=== PATIENT | female | born 1995 | race Caucasian/White ===

== ENCOUNTER 2016-11-13 15:22 | Emergency (ER) | payer MEDICAID, OTHER ==
[~2016-11-13] VITALS: Ht 160 cm; Wt 80.7 kg
[2016-11-13 16:05] VITALS: BP 127/62
--- NOTE | 2016-11-13 17:04 | NUR ---
PT TO BED 4 AT THIS TIME.
--- NOTE | 2016-11-13 17:12 | NUR ---
PATIENT PRESENTS TO ED WITH C/O OF COUGH AND SORE THROAT . PT STATES SHE STARTED COUGHING TODAY AND FEELS REALLY WEAK . DENIES N/V/D; SKIN IS PINK/WARM/DRY; AAOX4 WITH EVEN AND STEADY GAIT; LUNGS CLEAR BL; HR EVEN AND REGULAR; PT DENIES ANY FEVER, CP, SOB, OR COUGH AT THIS TIME; PATIENT STATES PAIN OF 0/10 AT THIS TIME; VSS; PATIENT POSITIONED FOR COMFORT; HOB ELEVATED; BEDRAILS UP X2; BED DOWN. ER MD MADE AWARE OF PT STATUS.
--- NOTE | 2016-11-13 17:17 | NUR ---
PATIENT BEING EVALUATED BY DOCTOR AT BEDSIDE
--- NOTE | 2016-11-13 19:19 | NUR ---
ENDORSED CONTINUITY OF CARE TO THE NIGHT NURSE
[2016-11-13 19:55] VITALS: BP 126/87
--- NOTE | 2016-11-13 19:55 | NUR ---
Patient discharged with v/s stable. Written and verbal after care instructions given and explained. Patient verbalized understanding. Ambulatory with steady gait. All questions addressed prior to discharge. Advised to follow up with PMD.
== END 2016-11-13 19:55 | disposition home or self-care (01) ==
LOC: MED 15:22
DX: O26.891 Other specified pregnancy related conditions, first trimester (principal); J09.X2 Influenza due to identified novel influenza A virus with other respiratory manifestations; Z3A.01 Less than 8 weeks gestation of pregnancy

== ENCOUNTER 2020-09-06 08:18 | Emergency (ER) | payer MEDICAID, OTHER ==
[~2020-09-06] VITALS: Ht 162.6 cm; Wt 77.1 kg
[2020-09-06 08:39] VITALS: BP 104/77
--- NOTE | 2020-09-06 08:43 | NUR ---
Note victoria in [facility] - 09/06/20 at 0845 by [email or web address] Addendum: 09/06/20 at 0844 by [email or web address] Luis Angel kessler in [facility] - 09/06/20 at 0845 by [email or web address] HANDED ON URINE CUP.
[2020-09-06 08:53] VITALS: BP 129/79
--- NOTE | 2020-09-06 08:58 | NUR ---
25/f bib self C/O LEFT HEEL PAIN X 1 WEEK. DENIES TRAUMA. PMH:DENIES
[2020-09-06 10:29] VITALS: BP 129/79
== END 2020-09-06 10:29 | disposition home or self-care (01) ==
LOC: MED 08:18
DX: M76.62 Achilles tendinitis, left leg (principal)
CPT/HCPCS: 73650; 99283

== ENCOUNTER 2022-01-21 07:36 | Emergency (ER) | payer MEDICAID, OTHER ==
[~2022-01-21] VITALS: Ht 162.6 cm; Wt 85.7 kg
[2022-01-21 07:57] VITALS: BP 129/75
[2022-01-21 08:41] VITALS: BP 129/75
== END 2022-01-21 08:42 | disposition home or self-care (01) ==
LOC: MED 07:36
DX: B34.9 Viral infection, unspecified (principal)
CPT/HCPCS: 99281

== ENCOUNTER 2023-09-15 09:55 | Emergency (ER) | payer OTHER ==
[~2023-09-15] VITALS: Ht 167.6 cm; Wt 90.7 kg
[2023-09-15 10:36] VITALS: BP 127/70; PULSE 85; RESP 17; TEMP 96.6; O2SAT 98
[2023-09-15] MEDS ORDERED: IBUPROFEN 400 MG TAB PO ONE (12:25)
[2023-09-15] MEDS ORDERED: IBUP-1842 PO (12:32)
== END 2023-09-15 13:05 | disposition home or self-care (01) ==
LOC: MED 09:55
DX: S93.492A Sprain of other ligament of left ankle, initial encounter (principal); M77.52 Other enthesopathy of left foot and ankle; W22.8XXA Striking against or struck by other objects, initial encounter; Y93.89 Activity, other specified; Y92.89 Other specified places as the place of occurrence of the external cause; Y99.8 Other external cause status
CPT/HCPCS: 73610; 73630; 99284